=== PATIENT | female | born 1965 | race African-American/Black ===

== ENCOUNTER 2021-12-25 13:26 | Emergency (ER) | payer MEDICAID ==
[~2021-12-25] VITALS: Ht 152.4 cm; Wt 68.2 kg
[2021-12-25 14:40] LABS: COVID AG,FIA SOURCE NASAL SWAB
[2021-12-25 15:11] VITALS: BP 144/50
== END 2021-12-25 15:30 | disposition home or self-care (01) ==
LOC: EMS 13:26
DX: Z20.822 Contact with and (suspected) exposure to COVID-19 (principal)
CPT/HCPCS: 99283